=== PATIENT | male | born 1940 | race Caucasian/White ===

== ENCOUNTER → 2017-12-01 | Outpatient (CLI) | payer OTHER ==
[2017-12-01] VITALS (10 sets, daily range): BP systolic 106–159; BP diastolic 49–81
[~2017-12-01] VITALS: Ht 167.6 cm; Wt 72.6 kg
[~2017-12-01] MED LIST: ACETAMINOPHEN-1 EAC1 PO; ASPIR 8181 MG PO; FLUZONE HI180 MCG/05 IM; KEFLEX500 M1 PO; NAPROSYN500 MG PO; NORCO 5-325 TA1 EACH PO; PROAIR HFA8.5 GM INH; ROBAXIN 750 MG750 M1 PO
[2017-12-01 08:51] LABS: MCH 31.2 pg (26.0-34.0)
[2017-12-01 08:57] LABS: APTT 26.4 Seconds (25.0-31.3); INR 1.1; PROTIME 10.5 Seconds (9.20-11.50)
[2017-12-01 08:58] LABS: HEMOGLOBIN 9.6 gm/dL (14.0-18.0); NUCLEATED RBCS 1 /100WBC
[2017-12-01 09:00] LABS: HEMATOCRIT 31.4 % (42.0-52.0); MCHC 30.6 g/dL (28.0-37.0); MPV 8.6 fl. (7.2-11.1); PLATELET COUNT* 57 thou/uL (150-400); RBC 3.07 mil/uL (4.50-6.00); RDW-CV 20.3 % (10.5-14.5)
[2017-12-01 09:02] LABS: WBC 1.9 thou/uL (4.0-11.0)
[2017-12-01 09:27] LABS: ABSOLUTE MONOCYTES 0.2 thou/uL (0.0-1.2); ABSOLUTE NEUTROPHILS 0.7 thou/uL (1.6-8.1); ATYPICAL LYMPHS 2 %; HYPOCHROMASIA 1+; MACROCYTES 1+; OVALOCYTES Occasional; PLATELET ESTIMATE DECREASED; POLYCHROMASIA 2+
[2017-12-01 09:28] LABS: ANISOCYTOSIS 1+; POIKILOCYTOSIS 1+; TEARDROPS Occasional
--- NOTE | 2017-12-28 07:05 | PATH ---
[address] [address] PATHOLOGY RPT PROCEDURE Name: JANIE PEDRAZA Fei Room: [facility] Anjali#: [id number] Admission: 12/01/17 Date of : 42 Discharge: Report #: [id number] Path Case #: [id number] [facility] Accession Number: [id number] . 01 Material submitted: . PART A: BONE MARROW BIOPSY PART B: BONE MARROW CLOT PART C: BONE MARROW ASPIRATE SLIDES PART D: PERIPHERAL BLOOD SMEAR . 01 Clinical history: . This is a 77-year-old man with pancytopenia. . 02 Diagnosis: Bone marrow aspirate, biopsy, cell clot and peripheral blood: - Peripheral blood with pancytopenia including moderate macrocytic anemia, moderate leukopenia / neutropenia and moderate thrombocytopenia with rare circulating immature cells. - Hypercellular bone marrow with trilineage hematopoiesis, erythroid hyperplasia, trilineage dyspoiesis and mildly increased blasts (9% by morphology and 7.6% by flow cytometry). - See comment . (FABIAN:becky; 12/04/17) QLM/12/04/2017 . 02 Comment: Overall, the bone marrow is hypercellular for the patient's age with trilineage hematopoiesis, erythroid hyperplasia, trilineage dyspoiesis and mildly increased myeloblasts. There are 9% blasts by morphology and 7.6% blasts by flow cytometry. 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 Correlation with clinical history, additional laboratory data and cytogenetics is required. . (CLW:mmfei; 12/04/17) . 02 Electronically signed: . Tomasa Ludwig MD, Pathologist NPI- [id number] . 01 Gross description: . A. Received in formalin labeled "Janie Pedraza, core," is a single needle core of dark snow bone measuring 0.6 cm in length and 0.4 cm in diameter. The specimen is submitted entirely in cassette A1, following decalcification. . B. Received in formalin labeled "Janie Pedraza, clot," is an aggregate of dark snow blood clot measuring 2.1 x 1.9 x 0.6 [place] [address] PATHOLOGY RPT PROCEDURE Name: JANIE PEDRAZA [id number] Admission: 12/01/17 Date of : 42 Discharge: Report #: [id number] Path Case #: [id number] dimensions. The specimen is filtered and entirely submitted in cassette B1. (TSD; 12/01/2017) TOB/SHS . 02 Microscopic: . CBC Data (12/01/17): WBC 1,900 /uL, RBC 3.07, hemoglobin 9.6 g/dL, hematocrit 31.4%, MCV 102.0 fL, MCH 31.2 pg, MCHC 30.6 g/dL, RDW 20.3%, and platelet count 57,000 /uL. Manual white blood cell differential: segs 35%, lymphs 52%, monos 9%, eos 2%, and atypical lymphs 2%. . Peripheral Blood Smear: Cytomorphological examination of the Estevez's stained peripheral blood smear confirms the provided data. Red blood cells show moderate macrocytic anemia with mild anisopoikilocytosis. No schistocytes or microspherocytes are seen. Occasional elliptocytes and target cells are noted. White blood cells are mildly decreased in number. They are predominantly lymphocytes that are small, round, and mature-appearing with condensed chromatin and scant cytoplasm with admixed large granular lymphocytes and reactive-appearing lymphocytes. A rare plasmacytoid lymphocyte is noted. Granulocytes are predominantly segmented neutrophils with dyspoietic changes including hypogranularity and abnormal nuclear lobation. A rare immature appearing cell (possible blast) without William rods is noted on scanning. Monocytes appear mature. Platelets are moderately decreased in number and mainly normal in morphology with rare larger platelets noted. . Aspirate Smears: Cytomorphological examination of the Estevez's stained aspirate smears shows hypercellular spicules present. The overall cellularity is approximately 80%. The myeloid to erythroid ratio is 1:1.5. Full myeloid maturation is identified and is dyspoietic with left-shifted maturation, abnormal nuclear lobation and abnormal cytoplasmic granularity (hypogranular). Erythroid maturation is [id number] dyserythropoietic with irregular nuclear contours, mitotic figures, binucleate forms and occasional nuclear budding. In a 500 cell differential, there are 9% blasts (no William rods are seen), 35% more differentiated myeloids, 51% erythroid precursors and 5% lymphocytes. Megakaryocytes are proportional in number and both normal and abnormal in morphology with variable sizes and nuclei abnormalities. No lymphoid aggregates or markedly atypical lymphoid cells are seen. Plasma cells are without atypia. Iron stain of the aspirate smear shows 1/4+ iron positivity with spicules present. No ringed sideroblasts are identified. . Core Biopsy and Cell Clot: The decalcified bone marrow core biopsy is small, but adequate. The bone marrow is hypercellular with an overall cellularity of approximately 80%. The myeloid to erythroid ratio is 1:1. Myeloid and erythroid maturation are dyspoietic. Megakaryocytes are present, [place] [address] PATHOLOGY RPT PROCEDURE Name: JANIE PEDRAZA Room: [facility]#: [id number] Admission: 12/01/17 Date of : 42 Discharge: Report #: [id number] Path Case #: [id number] lymphoid aggregates or markedly atypical lymphoid cells are seen. Bony trabeculae and blood vessels are unremarkable. The cell clot has rare spicules present that are similar in cellularity and differential morphology as previously described. . Properly-controlled special stains are performed. . Block A1: Iron - 2/4+ iron positivity Reticulin - No significant reticulin fibrosis . Block B1: Iron - 2-3/4+ iron positivity . Due to the dyspoietic changes, to confirm the flow cytometry findings and to identify cells in a tissue architectural context, properly-controlled immunohistochemical stains are performed. . Block A1: CD34 - Stains occasional scattered cells CD117 - Stains occasional scattered cells MPO - Confirms the M:E ratio Glycophorin A - Confirms the M:E ratio . Block B1: CD34 - Stains occasional scattered cells CD117 - Stains occasional scattered cells MPO - Confirms the M:E ratio Glycophorin A - Confirms the M:E ratio . Flow Cytometry: Flow cytometric immunophenotypic analysis was performed at [facility]. 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 Of the lymphocytes, there are 84% T-cells with a CD4/CD8 ratio of 1.5 and no aberrant T cell antigen expression and 3% polyclonal mature B cells (kappa/lambda ratio of 1.3). There are 74.1% granulocytes. Neutrophilic granulocytes show decreased side scatter pattern (phenotypic evidence for hypogranularity / dysplasia) and dyssynchronous antigen CD10 / CD13 / CD16 expression (dysmaturation). Subsets show aberrant partial retention of CD117. There are 7.6% CD34+ cells (blasts) and precursor B cells are not detected. Please see separate flow cytometry report from [facility] ([id number]). . Cytogenetics: Cytogenetic chromosomal analysis is pending at [facility] ([id number]). [place] [address] PATHOLOGY RPT PROCEDURE Name: JANIE PEDRAZA Room: [facility] Anjali#: [id number] Admission: 12/01/17 Date of : 42 Discharge: Report #: [id number] Path Case #: [id number] (CLW:mml; 12/04/17) . 02 Pathologist provided ICD-10: D61.818, D53.9, D72.819, D70.9, D69.6 . 02 CPT . 851053, 240197, 539943, 178782, 681946, 984732, 745360, 407543, 350034, N60078, X24259 Specimen Comment: A courtesy copy of this report has been sent to Specimen Comment: [phone]. Performed at: 01 [facility] [address] [id number] MD Satish Betancourt MD Phone: [phone] Performed at: 02 [facility] [address] [id number] MD Savage Swanson MD Phone: [phone]
== END | disposition home or self-care (01) ==
LOC: M.INT 08:02
PROVIDERS: Radiology Diagnostic Radiology
DX: D61.818 Other pancytopenia (principal); D69.6 Thrombocytopenia, unspecified; D75.89 Other specified diseases of blood and blood-forming organs; Z98.890 Other specified postprocedural states; Z82.49 Family history of ischemic heart disease and other diseases of the circulatory system; Z87.891 Personal history of nicotine dependence; Z79.82 Long term (current) use of aspirin; Z79.899 Other long term (current) drug therapy

== ENCOUNTER → 2018-02-22 | Outpatient (CLI) | payer OTHER | LOC: M.ULTRA 10:41 | DX: R01.1 Cardiac murmur, unspecified (principal); R09.89 Other specified symptoms and signs involving the circulatory and respiratory systems ==

== ENCOUNTER → 2018-02-23 | Outpatient (CLI) | payer OTHER | LOC: M.LAB 02-22 14:30 → M.CT 02-22 14:30 → M.LAB 08:15 | DX: I63.9 Cerebral infarction, unspecified (principal); I65.23 Occlusion and stenosis of bilateral carotid arteries; D61.818 Other pancytopenia ==

== ENCOUNTER → 2018-05-07 | Outpatient (CLI) | payer OTHER ==
[2018-05-07 09:57] LABS: RBC 3.33 mil/uL (4.50-6.00)
[2018-05-07 09:59] LABS: HEMATOCRIT 29.6 % (42.0-52.0); MCH 26.8 pg (26.0-34.0); MCHC 30.1 g/dL (28.0-37.0); MCV 88.8 fL (80.0-100.0); MPV 8.3 fl. (7.2-11.1); NUCLEATED RBCS 1 /100WBC; PLATELET COUNT* 50 thou/uL (150-400)
[2018-05-07 10:15] LABS: HEMOGLOBIN 8.9 gm/dL (14.0-18.0)
[2018-05-07 11:20] LABS: ABSOLUTE MONOCYTES 0.6 thou/uL (0.0-1.2); ABSOLUTE NEUTROPHILS 8.5 thou/uL (1.6-8.1); ANISOCYTOSIS 2+; ATYPICAL LYMPHS 8 %; METAMYELOCYTES 1 %; PLATELET ESTIMATE DECREASED; POLYCHROMASIA 1+; TARGET CELLS 1+
[2018-05-07 11:21] LABS: OVALOCYTES 2+
== END ==
LOC: M.LAB 09:31
PROVIDERS: Family Medicine
DX: D64.9 Anemia, unspecified (principal)

== ENCOUNTER → 2018-05-14 | Outpatient (CLI) | payer OTHER ==
[2018-05-14 10:04] LABS: HEMATOCRIT 26.7 % (42.0-52.0); MCH 26.3 pg (26.0-34.0); MCHC 29.8 g/dL (28.0-37.0); MCV 88.2 fL (80.0-100.0); MPV 7.6 fl. (7.2-11.1); RBC 3.02 mil/uL (4.50-6.00); RDW-CV 18.1 % (10.5-14.5); WBC 9.6 thou/uL (4.0-11.0)
== END ==
LOC: M.LAB 09:39
PROVIDERS: Family Medicine
DX: D46.20 Refractory anemia with excess of blasts, unspecified (principal)